=== PATIENT | male | born 2005 | race Caucasian/White ===

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

== ENCOUNTER 2025-04-09 20:42 | Emergency (ER) | payer MEDICAID, SELFPAY ==
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
[2025-04-09 20:49] VITALS: BP 137/63; PULSE 58; RESP 16; TEMP 36.3; O2SAT 96; BMI 28.4
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
--- OUTSIDE RECORDS SUMMARY | 2025-04-09 21:48 | XMS_ITS | Clinical Summary ---
Author Organization [facility] Address [address] [place] [address] Phone Care Team Providers Care Founder President And Ceo Name Role Phone Physician, No Pcp Primary Care Provider Unavaila ble Allergies No known active allergies Social History Tobacco Use Types Packs/Day Years Used Date Smoking Tobacco: Never Assessed Sex and Gender Information Value Date Recorded Sex Assigned at Male 04/16/2024 10:38 AM EST Legal Sex Male 8:27 PM EST Gender Identity Male 04/16/2024 10:38 AM EST Sexual Orientation Straight 04/16/2024 10 :38 AM EST Growth Chart Information Age Height Weight Fmvrzy-rzh-ttyk th Percentile BMI Percentile Head Circum Head Circum Percentile Date 19 years 177.8 cm (5' 10 ) 99.8 kg (220 lb) 96.06%* 2023 * [facility] (Boys, 2-20 Years) Last Filed Vital Signs Vital Sign Reading Time Taken Comments Blood Pressure 124/72 04/16/2024 10:14 AM EST Pulse 70 04/16/2024 10:14 AM EST Temperature 36.7 C (98 F) 04/16/2024 10:14 AM EST Respiratory Rate 16 04/16/2024 10:14 AM EST Oxygen Saturation 97% 04/16/2024 10:14 AM EST Inhaled Oxygen Concentration - - Weight 99.8 kg (220 lb) 04/16/2024 10:14 AM EST Height 177.8 cm (5' 10 ) 04/16/2024 10:14 AM EST Body Mass Index 31.57 04/16/2024 10:14 AM EST Plan of Treatment Health Maintenance Due Date Last Done Comments Varicella Vaccines (1 of 2 - 13+ 2-dose series) 2018 HPV Vaccines (1 - Male 3-dos e series) 2020 Meningococcal B Vaccine (1 o f 2 - Standard) 2021 Annual Well Child Visit (3-2 1 years old) 05/23/2023 HIV Screening 05/23/2023 Hepatitis C Screening 05/23/2023 Social Influencers of Health Screening 05/23/2023 DTaP,Tdap,and Td Vaccines (1 - Tdap) 2024 Hepatitis B Vaccines (1 of 3 - 19+ 3-dose series) 2024 Depression Screening 04/28/2024 COVID-19 Vaccine (1 - 2024-2 6 season) 2024 Influenza Vaccine (#1) 2024 RSV Immunization Adult Patie nts (1 - 1-dose 75+ series) 2080 HIB Vaccines Aged Out No longer eligi ble based on patient's age to complete this topic Hepatitis A Vaccines Aged Out No long er eligible based on patient's age to complete this topic IPV Vaccines Aged Out No longer eligi ble based on patient's age to complete this topic MMR Vaccines Aged Out No longer eligi ble based on patient's age to complete this topic Meningococcal ACWY Vaccine Aged Out N o longer eligible based on patient's age to complete this topic Pneumococcal Vaccine: Pediat rics (0 to 5 Years) and At-Risk Patients (6 to 49 Years) Aged Out No longer eligible b ased on patient's age to complete this topic RSV Immunization Patients Un harini 20 months Aged Out No longer eligible b ased on patient's age to complete this topic Insurance Care Teams Founder President And Ceo Relationship Specialty Start Date End Date Physician, No Pcp PCP - General 04/16/24
--- NOTE | 2025-04-09 22:38 | ECG_ITS ---
Test Reason : MED CLEAR Blood Pressure : */* mmHG Vent. Rate : 47 BPM Atrial Rate : 47 BPM P-R Int : 128 ms QRS Dur : 96 ms QT Int : 434 ms P-R-T Axes : -9 59 12 degrees QTcB Int : 384 ms Sinus bradycardia Otherwise normal ECG No previous ECGs available Referred By: Hortensia Mcclain Electronically Signed By: KAYA PERKINS MD
--- NOTE | 2025-04-09 22:40 | PC.NURSE ---
Addendum entered by Nilam Taveras RN 04/09/25 22:45: POD Rn Yary made aware, patient walked over to pod by Martha. Original Note: pt refusing Im toradol, now endorsing SI statements. elementary school music teacher and provider Marisol made aware. Plan for patient to be changed over and sent to POD. Pt does not want to see uncle whom is in [place] again tonight. elementary school music teacher and registration in front made aware.
--- NOTE | 2025-04-09 23:17 | PC.NURSE ---
[facility]. At d/c pt reported SI. He reports to tw that he hasnt taken his meds in a while. He reports taking medications for PTSD but could not recall what medications he takes. PT provided urine cup for sample, Labs drawn and ekg completed. requested and provided fluids/food, resting quietly Safety precautions in place. Video monitoring on, 15 minute check initiated.
[2025-04-09 23:27] LABS: Hematocrit 47.4 % (42.0-52.0); Hemoglobin 16.2 g/dl (14.0-18.0); Imm Gran Abs Auto 0.04 X10*3/uL (0.00-0.03); Imm Gran Pct Auto 0.3 % (0.0-0.4); Lymphocytes Absolute Auto 3.2 X10*3/uL (1.2-4.9); MANUAL DIFF FLAG NO; Mean Corpuscular HGB Conc 34.2 g/dl (31.0-36.0); Mean Corpuscular Hemoglobin 30.2 pg (27.0-33.0); Mean Corpuscular Volume 88.4 fL (80.0-98.0); NRBC Abs Auto 0.000 X10*3/uL (0.0-0.012); NRBC Pct Auto 0.0 /100WBC (0.0-0.2); Platelet Count 254 X10*3/uL (160-400); Red Blood Count 5.36 X10*6/uL (4.60-5.80); White Blood Count 12.7 X10*3/uL (4.8-10.8)
[2025-04-09 23:42] LABS: COVID-19 Test Negative (Negative); IDNOW Serial# 55D5AD1C
[2025-04-09 23:42] LABS: IDNOW Serial# 58CA691E; Influenza B2 Negative (Negative)
[2025-04-09 23:44] LABS: Acetaminophen LAB < 3 mcg/mL (<30); Alanine Aminotransferase 29 U/L (0-40); Albumin Level 5.1 g/dL (3.5-5.0); Alkaline Phosphatase 88 U/L (39-117); Anion Gap 11 (12-20); Aspartate Amino Transferase 28 U/L (5-37); Blood Urea Nitrogen 12 mg/dL (9-16); Calcium 9.8 mg/dL (8.4-10.2); Carbon Dioxide 28 mmol/L (22-29); Chloride 108 mmol/L (96-108); Creatinine Clr Calc Pharmacy 140.9; Estimated Glomerular Filt Rate > 60; Magnesium 2.0 mg/dL (1.6-2.6); Potassium 3.9 mmol/L (3.3-5.1); Salicylate < 5.0 mg/dL (15-30); Sodium 143 mmol/L (135-145); Total Protein 7.5 g/dL (6.5-8.0)
[2025-04-10 06:00] VITALS: RESP 16
--- NOTE | 2025-04-10 07:04 | PC.NURSE ---
Assumed care of patient at 0645, patient appears to be in no apparent distress this am, resting comfortably in bed, respirations even and unlabored. Continue plan of care for CARE team assessment
[2025-04-10 09:38] LABS: Appearance Urine Clear; Glucose Urine UA Negative (Negative); PH 5.5 (5.0-9.0); Specific Gravity - Urine >= 1.030 (1.005-1.025)
[2025-04-10 09:50] LABS: Cannabinoid Screen Urine POSITIVE (Not Detect)
[2025-04-10 10:50] VITALS: BP 137/63; PULSE 58; RESP 16; TEMP 36.3; O2SAT 96
--- NOTE | 2025-04-10 10:51 | PHA.MEDREC ---
Pharmacy Consult ? Medication Reconciliation Pharmacy has completed the medication reconciliation. Med rec completed by Radha, matches claim history. Per note, patient unsure and admittedly nonadherent.
== END 2025-04-10 11:38 | disposition home or self-care (01) ==
PROVIDERS: Physician Assistant Medical; Emergency Provider Emergency Medicine
DX: R07.89 Other chest pain (principal); R45.851 Suicidal ideations; F43.10 Post-traumatic stress disorder, unspecified
CPT/HCPCS: 36415; 71101; 80053; 80143; 80179; 80307; 81003; 83735; 85025; 87502; 87635; 93005; 99285; S9485

== ENCOUNTER → 2025-04-09 20:55 | Outpatient (BNV) | payer SELFPAY | PROVIDERS: Visit Provider Radiology Diagnostic Radiology | DX: Z04.3 Encounter for examination and observation following other accident (principal) | CPT/HCPCS: 71101 ==

== ENCOUNTER → 2025-04-09 22:38 | Outpatient (BNV) | payer MEDICAID, SELFPAY | PROVIDERS: Emergency Provider Emergency Medicine; Visit Provider Internal Medicine Cardiovascular Disease | DX: R00.1 Bradycardia, unspecified (principal) | CPT/HCPCS: 93010 ==